=== PATIENT | male | born 1990 | race Two or more races ===

== ENCOUNTER 2018-02-05 20:39 | Emergency (ER) | payer MEDICAID ==
[~2018-02-05] VITALS: Ht 182.9 cm; Wt 82.0 kg
[2018-02-05 21:27] VITALS: BP 137/63
[2018-02-05] MEDS ORDERED: CEFTRIAXONE SODIUM 250 MG/VIAL IM ONE (23:00)
[2018-02-05] MEDS ORDERED: AZITHROMYCIN 500 MG TABLET PO ONE (23:00)
[2018-02-05] MEDS ORDERED: LIDOCAINE HCL/PF 1% 10 MG/ML 5ML VIAL IJ NR (23:15)
== END 2018-02-05 23:46 | disposition home or self-care (01) ==
LOC: ER 20:39
DX: N34.2 Other urethritis (principal)
CPT/HCPCS: 96372; 99283; J0696; J3490

== ENCOUNTER 2018-06-08 16:15 | Emergency (ER) | payer MEDICAID ==
[~2018-06-08] VITALS: Ht 182.9 cm; Wt 82.0 kg
[2018-06-08 21:52] VITALS: BP 112/59
== END 2018-06-08 21:52 | disposition home or self-care (01) ==
LOC: ER 16:15
DX: L02.31 Cutaneous abscess of buttock (principal)
CPT/HCPCS: 99283

== ENCOUNTER 2019-07-31 13:22 | Emergency (ER) | payer SELFPAY ==
[~2019-07-31] VITALS: Ht 182.9 cm; Wt 79.5 kg
[2019-07-31 15:19] VITALS: BP 125/85
== END 2019-07-31 15:21 | disposition home or self-care (01) ==
LOC: ER 13:36
DX: B34.9 Viral infection, unspecified (principal); Z03.818 Encounter for observation for suspected exposure to other biological agents ruled out
CPT/HCPCS: 99281